=== PATIENT | female | born 1995 | race Caucasian/White ===

== ENCOUNTER 2017-12-02 09:35 | Emergency (ER) | payer OTHER ==
[2017-12-02 09:39] VITALS: BP 125/74
--- NOTE | 2017-12-02 09:45 | EDPHY ---
H & P Stated Complaint: STUNG BY WASP YESTERDAY LOCALIZED SWELLING L FOREARM Time Seen by Provider: 12/02/17 09:42 - Personal History LMP (Females 10-55): 22-28 Days Ago Current Tetanus Diphtheria and Acellular Pertussis (TDAP): Yes - Medical/Surgical History Hx Asthma: No Hx Chronic Respiratory Disease: No Hx Diabetes: No Hx Cardiac Disease: No Hx Renal Disease: No Hx Cirrhosis: No Hx Alcoholism: No Hx HIV/AIDS: No Hx Splenectomy or Spleen Trauma: No Other PMH: DENIES - Social History Smoking Status: Never smoked Constitutional: Initial Vital Signs Temperature (C) 36.9 C 12/02/17 09:36 Heart Rate 110 H 12/02/17 09:36 Respiratory Rate 17 12/02/17 09:36 Blood Pressure 125/74 H 12/02/17 09:36 O2 Sat (%) 97 12/02/17 09:36 O2 Delivery Mode Room Air Allergies/Adverse Reactions: No Known Allergies Allergy (Unverified 12/02/17 09:36) Home Medications: Medication Instructions Recorded NK [No Known Home Meds] 12/02/17 Medical Decision Making ED Course/Re-evaluation: CHIEF COMPLAINT: Right forearm wasp sting HISTORY OF PRESENT ILLNESS: The patient is a 21 y/o female complaining of a wasp sting to her right forearm yesterday while at work. She denies shortness of breath, difficulty swallowing, or fevers. As this occurred at work, she decided to present to the emergency department. No headache, chest pain, abdominal pain, urinary or bowel complaints , numbness, paresthesias. REVIEW OF SYSTEMS: A comprehensive 10 system review of systems is otherwise negative aside from elements mentioned in the history of present illness and medical decision making. PHYSICAL EXAM: HR, BP, O2 Sat, RR. Temp noted General Appearance: Alert, well hydrated, appropriate, and non-toxic appearing. Head: Atraumatic without scalp tenderness or obvious injury Eyes: Pupils equal, round, reactive to light and accommodation, EOMI, no trauma , no injection. Ears: Clear bilaterally, no perforation, normal landmarks Nose: Atraumatic, no rhinorrhea, clear. Throat: There is no erythema or exudates, no lesions, normal tonsils, mucus membranes moist. Neck: Supple, nontender, no lymphadenopathy. Respiratory: No retractions, no distress, no wheezes, and no accessory muscle use. Lungs are clear to auscultation bilaterally. Cardiovascular: Regular rate and rhythm, no murmurs, rubs, or gallops. Bilateral carotid, radial, dorsalis pedis, and posterior tibial pulses intact. Good capillary refill all extremities. Musculoskeletal: Normal active ROM of all extremities, atraumatic. Neurological: Alert, appropriate, and interactive. The patient has normal DTRs and non-focal cranial nerves, motor, sensory, and cerebellar exam. Skin: Right forearm localized erythema and swelling to the area of the insect sting. No rashes, good turgor, no nodules on palpation. Past medical history: Denies Past surgical history: Denies Family history: Denies Social history: Employed for the [employer], single DIFFERENTIAL DIAGNOSIS: The differential diagnosis included but was not limited to angioedema, anaphylaxis, anaphylactoid reaction, urticarial reaction, and other infectious causes for skin rash. MEDICAL DECISION MAKING: The patient is a 21 y/o female presenting with a wasp sting to her right forearm that occurred yesterday while at work. On exam she has localized erythema and swelling of the right arm at the location of the wasp sting. She does not have shortness of breath, difficulty breathing, or angioedema. 40mg PO Prednisone given. Laboratory and imaging studies are not indicated at this time. [id number]: Reassessed patient and discussed return precautions. Patient is comfortable with this plan. - Data Points Medications Given: Discontinued Medications Prednisone (Prednisone) 40 mg PO EDNOW ONE Stop: 12/02/17 09:49 Last Admin: 12/02/17 09:53 Dose: 40 mg Departure - Departure Disposition: Home, Routine, Self-Care Clinical Impression: Insect sting Qualifiers: Encounter type: initial encounter Injury intent: accidental or unintentional Qualified Code(s): T63.481A - Toxic effect of venom of other arthropod, accidental (unintentional), initial encounter Condition: Good Instructions: Insect Bite or Sting (ED) Additional Instructions: 1. Take ibuprofen as prescribed for pain and inflammation. 2. Follow-up with your primary doctor within 72 hours. 3. Return to the Emergency Department for shortness of breath, difficulty swallowing, difficulty breathing, worsening of rash, fever or other worsening of condition. Referrals: Work Comp Referral [facility] [place] [Outside] - As per Instructions Report Scribed for: Frank Garcia Report Scribed by: Laverne Dozier Date of Report: 12/02/17 Time of Report: 09:46
[2017-12-02] MEDS ORDERED: predniSONE 20 MG TAB PO ONE (09:48)
== END 2017-12-02 09:55 | disposition home or self-care (01) ==
DX: T63.441A Toxic effect of venom of bees, accidental (unintentional), initial encounter (principal)
CPT/HCPCS: J7512